=== PATIENT | female | born 2005 | race Caucasian/White ===

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

== ENCOUNTER 2023-10-06 12:39 | Outpatient (CLI) | payer MEDICAID ==
[2023-10-06 22:31] LABS: CHLAMYDIA TRACHOMATIS DNA NEGATIVE (NEGATIVE); NEISSERIA GONORRHOEAE DNA NEGATIVE (NEGATIVE); TRICHOMONAS VAGINALIS DNA NEGATIVE (NEGATIVE)
[2023-10-08 06:10] LABS: HIV SCREEN 4TH GENERATION Non Reactive (Non Reactive); RPR Non Reactive (Non Reactive)
[2023-10-09 00:07] LABS: HCV AB Non Reactive (Non Reactive)
== END 2023-10-06 12:40 | disposition home or self-care (01) ==
LOC: LAB.N 12:39
PROVIDERS: ATTEND Family Medicine
DX: Z11.3 Encounter for screening for infections with a predominantly sexual mode of transmission (principal); T74.21XA Adult sexual abuse, confirmed, initial encounter
CPT/HCPCS: 86592; 86803; 87389; 87491; 87591; 87661